=== PATIENT | male | born 1940 | race Caucasian/White ===

== ENCOUNTER 2018-03-14 14:58 | Emergency (ER) | payer MEDICARE, OTHER, SELFPAY ==
--- NOTE | 2018-03-14 15:04 | ED.ABDPAIN ---
HPI - Abdominal Pain <Jocelyn Savage PA-C - Last Filed: 03/14/18 21:42> General Chief Complaint: Extremity Problem,Nontraumatic Stated Complaint: SWOLLEN AND BLOATED Time Seen by Provider: 03/14/18 15:01 Source: patient and old records reviewed (03/03/2018 BNP 341, creatinine 1.0, potassium 3.8, sodium 131, H&H 10.2/30.1) Mode of arrival: wheelchair Limitations: no limitations History of Present Illness HPI narrative: This 77-year-old male comes to the ED today due to lower extremity edema and pain. He states that he was supposed to see Cardiology for hospital follow-up today, but was sent here due to leg swelling. He never saw a provider. He states that he was admitted to another local hospital 11 days ago, treated for pneumonia and apparently had an echocardiogram at that time and was also told he has CHF, type unknown but apparently that was worse than previously. He states that prior to hospitalization, he had been on torsemide which was discontinued, and his amlodipine was increased. He states this was back in December. He states that there is no acute swelling today, it has been a gradual increase since he left the hospital. He states that he is always on 6 L of oxygen at home, without that his oxygen saturations are in the 60% range. He states that he does not have any new dyspnea or cough. He does not have any chest pain. He denies any abdominal pain or swelling and states that his appetite is good. He notes that he finished his antibiotics yesterday. Related Data Home Medications Medication Instructions Recorded Confirmed acetaminophen 325 mg PO Q4H PRN #0 06/25/11 03/14/18 nitroglycerin [Nitrostat] 1 dose SUBLINGUAL PRN #0 06/28/11 03/14/18 albuterol sulfate [Ventolin HFA] 2 puff INHALATION Q4-6H PRN 03/14/18 03/14/18 amlodipine 2 tab PO DAILY 03/14/18 03/14/18 aspirin 81 mg PO DAILY 03/14/18 03/14/18 docusate sodium 100 mg PO BID 03/14/18 03/14/18 ferrous sulfate 325 mg PO TIDWM 03/14/18 03/14/18 fluticasone-salmeterol [Advair HFA] 1 puff INHALATION BID 03/14/18 03/14/18 gabapentin 200 mg PO BEDTIME 03/14/18 03/14/18 metoclopramide HCl 5 mg PO Q12H 03/14/18 03/14/18 pantoprazole 40 mg PO DAILY 03/14/18 03/14/18 polyethylene glycol 3350 1 dose PO PRN PRN 03/14/18 03/14/18 ranitidine HCl 150 mg PO TID PRN 03/14/18 03/14/18 spironolactone 12.5 mg PO BID 03/14/18 03/14/18 telmisartan [Micardis] 40 mg PO BID 03/14/18 03/14/18 Allergies Allergy/AdvReac Type Severity Reaction Status Date / Time Penicillins Allergy Unknown Verified 03/14/18 15:14 Exam <Jocelyn Savage PA-C - Last Filed: 03/14/18 21:42> Narrative Exam Narrative: GENERAL APPEARANCE: Patient sitting comfortably, in no distress. HEENT: EOMI, CONJUNCTIVAE A LITTLE PALE NECK/THYROID: Neck supple, no JVD. LUNGS: Generalized coarse, reduced breath sounds without wheezes or crackles HEART: Regular rate and rhythm with II/ systolic murmur, normal S1, S2, no S3 or S4. ABDOMEN: Soft, NT, ND, + BS x 4 quadrants EXTREMITIES: No cyanosis, 2+ symmetric pitting bilateral lower extremities to the mid shins. No calf tenderness. He is tender over the shins. Pedal pulses are intact NEUROLOGIC: Alert and oriented, normal speech, and coordination. Initial Vital Signs Initial Vital Signs: Vital Signs Temperature 98.4 F 03/14/18 15:14 Pulse Rate 64 03/14/18 15:14 Respiratory Rate 17 03/14/18 15:14 Blood Pressure 160/66 H 03/14/18 15:14 Pulse Oximetry 97 03/14/18 15:14 <Redd Alexis DO - Last Filed: 03/15/18 07:07> Initial Vital Signs Initial Vital Signs: Vital Signs Temperature 98.4 F 03/14/18 15:14 Pulse Rate 64 03/14/18 15:14 Respiratory Rate 17 03/14/18 15:14 Blood Pressure 160/66 H 03/14/18 15:14 Pulse Oximetry 97 03/14/18 15:14 Course <Jocelyn Savage PA-C - Last Filed: 03/14/18 21:42> Additional Information: I reviewed patient's findings and plan with Dr. Alexis due to low sodium. He has chronic hyponatremia with typical sodium levels upper 120s -130 range. He is feeling significantly improved after a dose of Lasix and no evidence of CHF exacerbation. Dr. Alexis agreed reasonable to discharge patient with current plan. He already has cardiology follow-up scheduled middle of next week and agreed to return if acutely worsening symptoms in the interim Orders Ordered: Discontinued Medications Furosemide (Lasix) 40 mg IV NOW ONE Stop: 03/14/18 15:34 Last Admin: 03/14/18 15:51 Dose: 40 mg Glucagon (Glucagen) 1 mg IV NOW ONE Stop: 03/14/18 17:20 Sodium Chloride (Normal Saline 0.9%) 1,000 mls @ 1,000 mls/hr IV BOLUS ONE Stop: 03/14/18 18:18 Vital Signs - 8 hr 03/14/18 15:14 03/14/18 16:13 03/14/18 16:35 Temperature 98.4 F Pulse Rate 64 56 L 73 Respiratory Rate 17 18 20 Blood Pressure 160/66 H Blood Pressure [Right Arm] 144/56 H 142/58 H Pulse Oximetry 97 100 97 03/14/18 17:19 Temperature Pulse Rate 63 Respiratory Rate 19 Blood Pressure 134/58 H Blood Pressure [Right Arm] Pulse Oximetry 98 <Redd Alexis DO - Last Filed: 03/15/18 07:07> Orders Ordered: Discontinued Medications Furosemide (Lasix) 40 mg IV NOW ONE Stop: 03/14/18 15:34 Last Admin: 03/14/18 15:51 Dose: 40 mg Glucagon (Glucagen) 1 mg IV NOW ONE Stop: 03/14/18 17:20 Sodium Chloride (Normal Saline 0.9%) 1,000 mls @ 1,000 mls/hr IV BOLUS ONE Stop: 03/14/18 18:18 Vital Signs - 8 hr 03/14/18 15:14 03/14/18 16:13 03/14/18 16:35 Temperature 98.4 F Pulse Rate 64 56 L 73 Respiratory Rate 17 18 20 Blood Pressure 160/66 H Blood Pressure [Right Arm] 144/56 H 142/58 H Pulse Oximetry 97 100 97 03/14/18 17:19 Temperature Pulse Rate 63 Respiratory Rate 19 Blood Pressure 134/58 H Blood Pressure [Right Arm] Pulse Oximetry 98 MDM - Abdominal Pain <Jocelyn Savage PA-C - Last Filed: 03/14/18 21:42> Lab Data Attestation: I reviewed the patient's lab results. Result diagrams: 03/14/18 15:28 03/14/18 15:28 Lab Results 03/14/18 03/14/18 03/14/18 Range/Units 15:28 15:28 15:28 WBC 9.1 (4.5-11.0) X10^3/uL RBC 3.18 L (4.5-5.9) X10^6/uL Hgb 10.0 L (13.5-17.5) g/dL Hct 28.9 L (41-53) % MCV 90.8 (80-100) fL MCH 31.5 (26-34) PG MCHC 34.6 (30-36) % RDW 14.6 (11.6-14.8) % Plt Count 349 (150-400) X10^3/uL Neut % (Auto) 75.5 H (50-75) % Lymph % (Auto) 13.1 L (25-40) % [place] % (Auto) 7.0 (3-14) % Eos % (Auto) 3.0 (2-4) % Baso % (Auto) 1.4 (0-2) % Neut # (Auto) 6900 H (1876-8482) /uL Sodium (137-145) mmol/L Potassium (3.4-5.1) mmol/L Chloride (98-107) mmol/L Carbon Dioxide (22-32) mmol/L BUN (9-20) mg/dL Creatinine (0.66-1.25) mg/dL Estimated GFR (>60) mL/min BUN/Creatinine Ratio (6-22) Glucose (80-110) mg/dL Calcium (8.4-10.2) mg/dL Magnesium 1.5 L (1.6-2.3) mg/dL B-Natriuretic Peptide 118.0 H (<100) 03/14/18 Range/Units 15:28 WBC (4.5-11.0) X10^3/uL RBC (4.5-5.9) X10^6/uL Hgb (13.5-17.5) g/dL Hct (41-53) % MCV (80-100) fL MCH (26-34) PG MCHC (30-36) % RDW (11.6-14.8) % Plt Count (150-400) X10^3/uL Neut % (Auto) (50-75) % Lymph % (Auto) (25-40) % [place] % (Auto) (3-14) % Eos % (Auto) (2-4) % Baso % (Auto) (0-2) % Neut # (Auto) (9016-5750) /uL Sodium 125 L (137-145) mmol/L Potassium 4.1 (3.4-5.1) mmol/L Chloride 89 L (98-107) mmol/L Carbon Dioxide 29 (22-32) mmol/L BUN 5 L (9-20) mg/dL Creatinine 0.80 (0.66-1.25) mg/dL Estimated GFR > 60.0 (>60) mL/min BUN/Creatinine Ratio 6.3 (6-22) Glucose 94 (80-110) mg/dL Calcium 8.1 L (8.4-10.2) mg/dL Magnesium (1.6-2.3) mg/dL B-Natriuretic Peptide (<100) Imaging Data Chest x-ray: Radiologist's impression: View Report History Print [address] [address] XRay Report Signed Patient: Pollo Vizcaino MR#: [id number] : 1940 Acct:[id number] Age/Sex: 77 / M Date of Service: 03/14/18 Loc: ED Accession Number: [id number] Procedure: XR chest 1V Ordering Provider: Jocelyn Savage P.A-C PROCEDURE: XR CHEST 1V INDICATIONS: Edema TECHNIQUE: One view of the chest was acquired. COMPARISON: [facility], CHEST 2 VIEW, 06/09/2013, 11:09. [facility], CHEST 2 VIEW, 09/11/2013, 11:18. FINDINGS: Surgical changes and devices: None. Lungs and pleura: No pleural effusions or pneumothorax. Lungs are clear. Mediastinum: Mediastinal contours appear normal. Heart size is normal. Bones and chest wall: No suspicious bony lesions. Overlying soft tissues appear unremarkable. IMPRESSION: No acute cardiopulmonary disease. Dictated by: Galo Cueva M.D. on 03/14/2018 at 16:40 Approved by: Galo Cueva M.D. on 03/14/2018 at 16:41 ECG Data Attestation: I personally reviewed and interpreted this ECG as follows: (NSR with rate 61, normal axis, first-degree AV block) Prior ECG tracings: not available for review <Redd Alexis DO - Last Filed: 03/15/18 07:07> Lab Data Lab Results 03/14/18 03/14/18 03/14/18 Range/Units 15:28 15:28 15:28 WBC 9.1 (4.5-11.0) X10^3/uL RBC 3.18 L (4.5-5.9) X10^6/uL Hgb 10.0 L (13.5-17.5) g/dL Hct 28.9 L (41-53) % MCV 90.8 (80-100) fL MCH 31.5 (26-34) PG MCHC 34.6 (30-36) % RDW 14.6 (11.6-14.8) % Plt Count 349 (150-400) X10^3/uL Neut % (Auto) 75.5 H (50-75) % Lymph % (Auto) 13.1 L (25-40) % [place] % (Auto) 7.0 (3-14) % Eos % (Auto) 3.0 (2-4) % Baso % (Auto) 1.4 (0-2) % Neut # (Auto) 6900 H (7352-3049) /uL Sodium (137-145) mmol/L Potassium (3.4-5.1) mmol/L Chloride (98-107) mmol/L Carbon Dioxide (22-32) mmol/L BUN (9-20) mg/dL Creatinine (0.66-1.25) mg/dL Estimated GFR (>60) mL/min BUN/Creatinine Ratio (6-22) Glucose (80-110) mg/dL Calcium (8.4-10.2) mg/dL Magnesium 1.5 L (1.6-2.3) mg/dL B-Natriuretic Peptide 118.0 H (<100) 03/14/18 Range/Units 15:28 WBC (4.5-11.0) X10^3/uL RBC (4.5-5.9) X10^6/uL Hgb (13.5-17.5) g/dL Hct (41-53) % MCV (80-100) fL MCH (26-34) PG MCHC (30-36) % RDW (11.6-14.8) % Plt Count (150-400) X10^3/uL Neut % (Auto) (50-75) % Lymph % (Auto) (25-40) % [place] % (Auto) (3-14) % Eos % (Auto) (2-4) % Baso % (Auto) (0-2) % Neut # (Auto) (9350-1259) /uL Sodium 125 L (137-145) mmol/L Potassium 4.1 (3.4-5.1) mmol/L Chloride 89 L (98-107) mmol/L Carbon Dioxide 29 (22-32) mmol/L BUN 5 L (9-20) mg/dL Creatinine 0.80 (0.66-1.25) mg/dL Estimated GFR > 60.0 (>60) mL/min BUN/Creatinine Ratio 6.3 (6-22) Glucose 94 (80-110) mg/dL Calcium 8.1 L (8.4-10.2) mg/dL Magnesium (1.6-2.3) mg/dL B-Natriuretic Peptide (<100) Discharge Plan Departure Patient Disposition: Home, Self-Care Clinical Impression: Stasis edema of both lower extremities Discharge Date/Time: 03/14/18 17:29 Interventions: ED Discharge Assessment Last Done: 03/14/18 17:19 Instructions: DI for Edema Due to Venous Stasis Activity Restrictions/Additional Instructions: The swelling in your legs does not appear to be related to a heart failure exacerbation right now. It may be related to getting fluids in the hospital as well as some of your medication changes since there is a time correlation. You were also given prednisone to help with your pneumonia which can cause fluid retention. We have given you furosemide, which you used to take, to help get some of the fluid off, and since you are feeling better, it is reasonable to monitor at home. Please take 1/2 of the old 20 mg torsemide that you have at home once daily for the next 2 days (take in the morning). Please weigh yourself daily and keep track of this for your cardiology follow-up next Saturday so that you can review at your visit. Please return as we talked about if you are feeling acutely worse again. Your sodium level was low at today's visit however this is a chronic issue for you. Should be rechecked next week. Prescriptions: No Action acetaminophen 325 mg Tablet 325 mg PO Q4H PRN (Reason: Pain, Mild) Qty: 0 RF: 0 nitroglycerin [Nitrostat] 0.4 mg Tablet, Sublingual 1 dose Sublingual PRN Qty: 0 RF: 0 amlodipine 2.5 mg tablet 2 tab PO DAILY RF: 0 spironolactone 25 mg tablet 12.5 mg PO BID RF: 0 pantoprazole 40 mg tablet,delayed release (DR/EC) 40 mg PO DAILY RF: 0 gabapentin 100 mg capsule 200 mg PO BEDTIME RF: 0 albuterol sulfate [Ventolin HFA] 90 mcg/actuation HFA aerosol inhaler 2 puff Inhalation Q4-6H PRN (Reason: Wheezing) RF: 0 fluticasone-salmeterol [Advair HFA] 115-21 mcg/actuation HFA aerosol inhaler 1 puff Inhalation BID RF: 0 polyethylene glycol 3350 17 gram Powder In Packet 1 dose PO PRN PRN (Reason: Constipation) RF: 0 aspirin 81 mg Tablet,Delayed Release (Dr/Ec) 81 mg PO DAILY RF: 0 metoclopramide HCl 5 mg Tablet 5 mg PO Q12H RF: 0 ferrous sulfate 325 mg (65 mg iron) Tablet 325 mg PO TIDWM RF: 0 ranitidine HCl 150 mg Tablet 150 mg PO TID PRN (Reason: Acid Reflux) RF: 0 telmisartan [Micardis] 80 mg Tablet 40 mg PO BID RF: 0 docusate sodium 100 mg Capsule 100 mg PO BID RF: 0 Referrals: Dariel Ann MD [Primary Care Provider] - Dilcia Fry MD [Family Provider] - <Redd Alexis DO - Last Filed: 03/15/18 07:07> Cosign ED Attending Maikel Attestation: I was available for consultation during this patient's emergency department encounter
[2018-03-14 15:14] VITALS: BP 160/66; PULSE 64; RESP 17; TEMP 36.9; O2SAT 97
--- NOTE | 2018-03-14 15:32 | DI.RAD.S_ITS ---
PROCEDURE: XR CHEST 1V INDICATIONS: Edema TECHNIQUE: One view of the chest was acquired. COMPARISON: [facility], CHEST 2 VIEW, 06/09/2013, 11:09. [facility], CHEST 2 VIEW, 09/11/2013, 11:18. FINDINGS: Surgical changes and devices: None. Lungs and pleura: No pleural effusions or pneumothorax. Lungs are clear. Mediastinum: Mediastinal contours appear normal. Heart size is normal. Bones and chest wall: No suspicious bony lesions. Overlying soft tissues appear unremarkable. IMPRESSION: No acute cardiopulmonary disease. Dictated by: Galo Cueva M.D. on 03/14/2018 at 16:40 Approved by: Galo Cueva M.D. on 03/14/2018 at 16:41
[2018-03-14 15:41] LABS: Add Manual Diff / Slide Review NO; Basophils Percent Auto 1.4 % (0-2); Hematocrit 28.9 % (41-53); Lymphocytes Percent Auto 13.1 % (25-40); Mean Corpuscular HGB Conc 34.6 % (30-36); Mean Corpuscular Hemoglobin 31.5 PG (26-34); Mean Corpuscular Volume 90.8 fL (80-100); Neutrophils Absolute Auto 6900 /uL (3000-5900); Neutrophils Percent Auto 75.5 % (50-75); Platelet Count 349 X10^3/uL (150-400); Red Blood Cell Count 3.18 X10^6/uL (4.5-5.9); Red Cell Distribution Width 14.6 % (11.6-14.8); White Blood Cell Count 9.1 X10^3/uL (4.5-11.0)
[2018-03-14 15:50] LABS: Magnesium 1.5 mg/dL (1.6-2.3)
[2018-03-14 15:51] LABS: BUN Creatinine Ratio 6.3 (6-22); Blood Urea Nitrogen 5 mg/dL (9-20); Calcium 8.1 mg/dL (8.4-10.2); Carbon Dioxide 29 mmol/L (22-32); Chloride 89 mmol/L (98-107); Estimated Glomerular Filt Rate > 60.0 mL/min (>60); Glucose 94 mg/dL (80-110); Potassium 4.1 mmol/L (3.4-5.1); Sodium 125 mmol/L (137-145)
[2018-03-14] MEDS: FUROSEMIDE 40 MG/4 ML VIAL IV (15:51)
[2018-03-14 15:52] LABS: HEMOLYSIS 62 (0-50)
[2018-03-14 16:13] VITALS: BP 144/56; PULSE 56; RESP 18; O2SAT 100
[2018-03-14 16:35] VITALS: BP 142/58; PULSE 73; RESP 20; O2SAT 97
--- NOTE | 2018-03-14 16:44 | PC.NURSE ---
Oxygen turned down from 6 to 4. Pt states he was told to use 6l nc by [facility] ED
[2018-03-14 17:19] VITALS: BP 134/58; PULSE 63; RESP 19; O2SAT 98
== END 2018-03-14 17:29 | disposition home or self-care (01) ==
PROVIDERS: Emergency Provider Internal Medicine; Family Provider Internal Medicine Cardiovascular Disease; PCP Family Medicine
DX: I87.303 Chronic venous hypertension (idiopathic) without complications of bilateral lower extremity (principal)
CPT/HCPCS: 36591; 71045; 80048; 83735; 83880; 85025; 93005; 93041; 96361; 96374; 96375; 99285; J1940

== ENCOUNTER → 2019-08-28 15:53 | Outpatient (CLI) | payer MEDICARE, OTHER, SELFPAY ==
--- NOTE | 2019-08-28 15:58 | DI.US.S_ITS ---
PROCEDURE: US PERIPH VENOUS LOW EXTREM LT INDICATIONS: LEFT LEG PAIN AND SWELLING TECHNIQUE: Real-time imaging, as well as color and pulse Doppler interrogation, were performed of the lower extremity deep veins from the inguinal ligament to the popliteal fossa. COMPARISON: None. FINDINGS: The common femoral, femoral and popliteal veins are normally compressible, and free of intraluminal thrombus. Color and pulse Doppler demonstrate normal phasic intraluminal flow. There is normal augmentation response to distal compression maneuver. Nonspecific soft tissue edema identified in the left lower leg. IMPRESSION: No evidence of deep vein thrombosis involving the left lower extremity. Dictated by: Usha Schultz MD, PhD on 08/28/2019 at 16:47 Approved by: Usha Schultz MD, PhD on 08/28/2019 at 16:47
== END ==
PROVIDERS: Family Provider Internal Medicine Cardiovascular Disease; PCP Family Medicine; Visit Provider Family Medicine
DX: M79.605 Pain in left leg (principal); M79.89 Other specified soft tissue disorders
CPT/HCPCS: 93971

== ENCOUNTER → 2020-05-11 13:10 | Outpatient (CLI) | payer MEDICARE, OTHER, SELFPAY ==
--- NOTE | 2020-05-11 13:30 | DI.ECHO.S_ITS ---
Echocardiogram Report + + :Name: TITUS FORREST Study Date: 05/11/2020 Height: 65 in : :[facility] Weight: 140 lb : : Gender: Male BSA: 1.7 m2 : :: 1940 Age: 80 yrs BP: 170/86 mmHg: :Reason For Study: COR PULMONALE : :Ordering Physician: HELEN, : :BRYAN Performed By: Tiffany Crump : :Referring: BRYAN CERVANTES : + + Interpretation Summary The left ventricle is normal in size. The ejection fraction is estimated to be 55-60%. The interventricular septum is flattened, consistent with a right ventricular pressure overload condition. The right ventricle is moderately dilated. Right ventricular systolic function is mildly reduced. There is mild tricuspid regurgitation. The right ventricular systolic pressure is estimated to be at least 93 mmHg based on an estimated right atrial pressure of 8 mm Hg. There is severe pulmonary hypertension. Compared to the prior echo exam, there has been an increase in the severity of pulmonary hypertension. Procedure: A two-dimensional transthoracic echocardiogram with color flow and Doppler was performed. The study quality was technically adequate. The patient had an echocardiogram, but there is no comparison study available. The patient had occasional PVCs during the exam. The patient was in normal sinus rhythm during the exam. Intermittent nonconducted PACs sees as well. Left Ventricle: The left ventricle is normal in size. There is mild concentric left ventricular hypertrophy. The ejection fraction is estimated to be 55-60%. The interventricular septum is flattened, consistent with a right ventricular pressure overload condition. MV E/A: 0.73 Med Peak E' Navi: 4.8 cm/sec E/E' med: 18.9. Right Ventricle: The right ventricle is moderately dilated. The right ventricle appears to be hypertrophied. Right ventricular systolic function is mildly reduced. Atria: The left atrium is mildly dilated. The right atrium is severely dilated. There is no Doppler evidence for an interatrial shunt. The interatrial septum bows toward left atrium consistent with elevated right atrial pressure. Mitral Valve: There is mild mitral annular calcification. The mitral valve chordae are thickened and/or calcified. There is mild mitral regurgitation. Aortic Valve: The aortic valve is trileaflet. The aortic valve is mildly calcified. There is mildly reduced leaflet mobility. There is no hemodynamically significant valvular aortic stenosis. There is trace aortic regurgitation. Tricuspid Valve: The tricuspid valve is normal. There is mild tricuspid regurgitation. There is severe pulmonary hypertension. The right ventricular systolic pressure is estimated to be at least 93 mmHg based on an estimated right atrial pressure of 8 mm Hg. Compared to the prior echo exam, there has been an increase in the severity of pulmonary hypertension. Pulmonic Valve: The pulmonic valve leaflets are thin and pliable; valve motion is normal. There is moderate pulmonic regurgitation. Great Vessels: The aortic root is normal size. The ascending aorta is normal in size. The IVC is of normal diameter and collapses less than 50% with a sniff. This suggests a right atrial pressure of 8 mm Hg. Pericardium/ Pleura There is no pericardial effusion. There is no pleural effusion. MMode/2D Measurements & Calculations LVIDd: 4.1 cm LVOT diam: 2.0 cm LVIDs: 2.7 cm Ao root diam: 3.1 cm FS: 34.8 % asc Aorta Diam: 3.3 cm EPSS: 0.91 cm IVSd: 1.3 cm LVPWd: 1.2 cm LV mohamud. diameter/BSA (cm/m^2): 2.4 LV sys. diameter/BSA (cm/m^2): 1.6 LA A2 area: 21.5 cm2 RA long axis: 5.4 cm LA A4 area: 19.7 cm2 RA area: 22.9 cm2 LA length (vol): 5.9 cm RA vol: 82.4 ml LA vol: 61.2 ml RA : 48.5 ml/m2 LA vol index: 36.0 ml/m2 IVC diam: 1.5 cm RVD1 (basal): 4.2 cm TAPSE: 1.7 cm Doppler Measurements & Calculations Ao V2 max: 157.8 cm/sec LVOT Max Navi: 96.4 cm/sec Ao V2 mean: 104.0 cm/sec LV V1 max P.7 mmHg Ao max P.0 mmHg LV V1 VTI: 24.8 cm Ao mean P.1 mmHg ADÁN(I,D): 2.2 cm2 Ao V2 VTI: 36.8 cm ADÁN(V,D): 2.0 cm2 sev ratio: 0.67 ADÁN indexed to BSA (cm^2/m^2): 1.3 MV E max navi: 91.5 cm/sec TR max navi: 460.2 cm/sec MV A max navi: 125.1 cm/sec TR max P.7 mmHg MV E/A: 0.73 Med Peak E' Navi: 4.8 cm/sec E/E' med: 18.9 Lat Peak E' Navi: 5.5 cm/sec E/E' lat: 16.7 E/e' average: 17.8 MV dec time: 0.18 sec SV(OT): 81.1 ml Reading Physician:06:40 PM
== END ==
PROVIDERS: Family Provider Internal Medicine Cardiovascular Disease; PCP Family Medicine; Referring Provider Internal Medicine Cardiovascular Disease; Visit Provider Internal Medicine Cardiovascular Disease
DX: I08.1 Rheumatic disorders of both mitral and tricuspid valves (principal); I27.81 Cor pulmonale (chronic); I27.21 Secondary pulmonary arterial hypertension
CPT/HCPCS: 93306